=== PATIENT | male | born 1975 | race Caucasian/White ===

== ENCOUNTER 2020-09-18 14:03 | Inpatient (IN) | payer BC ==
[~2020-09-18] VITALS: Ht 188 cm; Wt 127.3 kg
[2020-09-18] MEDS ORDERED: normal saline 1000ML IV soln IV ONE (14:45)
[2020-09-18 15:11] LABS: BASOPHILS % (AUTO) 0.2 % (0-1); EOSINOPHILS % (AUTO) 0 % (0-6); HEMATOCRIT 45.5 % (42.0-52.0); HEMOGLOBIN 15.1 g/dl (14.0-17.9); LYMPHOCYTES # (AUTO) 0.7 X10'3 (1.1-4.8); LYMPHOCYTES % (AUTO) 8.6 % (21-51); MEAN CORPUSCULAR HEMOGLOBIN 27.3 PG (27.0-31.0); MEAN CORPUSCULAR HGB CONC 33.2 g/dL (33.0-36.5); MEAN CORPUSCULAR VOLUME 82.2 FL (78-98); MEAN PLATELET VOLUME 7.5 FL (7.4-10.4); MONOCYTES # (AUTO) 0.5 X10'3 (0-0.9); MONOCYTES % (AUTO) 5.9 % (2-12); NEUTROPHILS # (AUTO) 6.7 X10'3 (1.8-7.7); NEUTROPHILS % (AUTO) 85.3 % (42-75); PLATELET COUNT 188 X10'3 (140-440); RED BLOOD COUNT 5.53 X10'6 (4.70-6.10); RED CELL DISTRIBUTION WIDTH 14.1 % (11.5-14.5); WHITE BLOOD COUNT 7.9 X10'3 (4.5-11.0)
[2020-09-18 15:15] LABS: ABG BASE EXCESS -2.9 mmol/L (-2.0-2.0); ABG HCO3 19.5 mmol/L (22.0-26.0); ABG OXYGEN SATURATION 89.9 % (94-97); ABG PCO2 (T) 28.5 mmHg (35.0-48.0); ALLEN'S TEST POSITIVE; FCOHb 0.9 % (0.0-3.9); FLOW 10 L/min; FMetHb 0.1 % (0.0-1.5); TOTAL HEMOGLOBIN 15.5 G/dl (14.0-18.0)
[2020-09-18 15:26] LABS: ALANINE AMINOTRANSFERASE 64 U/L (12-78); ALBUMIN 3.1 G/DL (3.4-5.0); ALBUMIN/GLOBULIN RATIO 0.7 (1.1-1.5); ALKALINE PHOSPHATASE 61 IU/L (46-116); ANION GAP 7 (8-16); ASPARTATE AMINO TRANSFERASE 131 U/L (10-37); BILIRUBIN,TOTAL 0.4 MG/DL (0.1-1.0); BLOOD UREA NITROGEN 13 MG/DL (7-18); BUN/CREATININE RATIO 9.4 (5.4-32.0); CALCIUM 7.7 MG/DL (8.5-10.1); CHLORIDE 98 MMOL/L (99-107); CREATININE 1.39 MG/DL (0.60-1.10); GLUCOSE 126 MG/DL (70-104); MAGNESIUM 1.9 MG/DL (1.5-2.4); POTASSIUM 3.6 MMOL/L (3.5-5.1); SODIUM 132 MMOL/L (135-145); TOTAL CARBON DIOXIDE 26.7 MMOL/L (24-32); TOTAL PROTEIN 7.4 G/DL (6.4-8.2); eGFR 55 ML/MIN
[2020-09-18] MEDS ORDERED: dexamethasone sod phosphate 10mg/ml inj IV STA (15:30)
[2020-09-18] MEDS ORDERED: CefTRIAXone 2gm/D5W 50ml BAG 50 ML IV ONE (16:00)
[2020-09-18] MEDS ORDERED: NO HOME MEDS (16:04)
[2020-09-18] MEDS ORDERED: REMDESIVIR 100MG inj. 200 MG in normal saline 100ml IV soln 100 ML IV ONE (16:05)
[2020-09-18] MEDS ORDERED: metoclopramide 5 mg/ml inj IV PRN (16:25)
[2020-09-18] MEDS ORDERED: HYDROcodone/acetaminophen 10/325mg tab PO PRN (16:25)
[2020-09-18] MEDS ORDERED: morphine 2 MG/ML inj. syringe IV PRN ×2 (16:25)
[2020-09-18] MEDS ORDERED: mag hydrox/Alum hydrox/simeth 30ml oral suspension PO PRN (16:25)
[2020-09-18] MEDS ORDERED: HYDROcodone/acetaminophen 5mg/325mg tablet PO PRN (16:25)
[2020-09-18] MEDS ORDERED: magnesium hydroxide 30ml (MOM) UD suspension PO PRN (16:25)
[2020-09-18] MEDS ORDERED: acetaminophen 325mg tablet PO PRN (16:25)
[2020-09-18] MEDS ORDERED: ondansetron/PF 4mg/2ml inj IV PRN (16:25)
[2020-09-18 16:47] LABS: D-DIMER 1.65 MG/L FEU (0-0.50)
[2020-09-18 16:57] LABS: C-REACTIVE PROTEIN 15.83 MG/DL (0.0-0.5)
[2020-09-18] MEDS: CefTRIAXone/D5W-Rocephin 1gm 50 ML IV SCH (17:01)
--- NOTE | 2020-09-18 17:56 | NUR ---
Pt noted as taking photos with cell phone. Informed of the federal offense r/t use of cameras in hospital/er. pt verbalized understanding. TASHA Garcia notified.
[2020-09-18 19:09] VITALS: BP 111/88
[2020-09-18] MEDS: docusate sod 100mg capsule PO SCH (20:00)
[2020-09-18] MEDS: dexamethasone inj 6 MG in normal saline 50ml IV soln 50 ML IV SCH (20:00)
[2020-09-18] MEDS: enoxaparin 40mg/0.4ml syringe SUBCUT SCH (20:00)
[2020-09-18 22:00] VITALS: BP 132/85
[2020-09-19 02:00] VITALS: BP 127/80
--- NOTE | 2020-09-19 06:25 | NUR ---
Patient in room PCU 3008. I have received report from MEKA Ortega and had the opportunity to ask questions and assume patient care.
[2020-09-19 06:48] LABS: BASOPHILS % (AUTO) 0.1 % (0-1); EOSINOPHILS % (AUTO) 0 % (0-6); HEMATOCRIT 42.5 % (42.0-52.0); HEMOGLOBIN 14.3 g/dl (14.0-17.9); LYMPHOCYTES # (AUTO) 0.6 X10'3 (1.1-4.8); LYMPHOCYTES % (AUTO) 7.4 % (21-51); MEAN CORPUSCULAR HEMOGLOBIN 27.4 PG (27.0-31.0); MEAN CORPUSCULAR HGB CONC 33.7 g/dL (33.0-36.5); MEAN CORPUSCULAR VOLUME 81.4 FL (78-98); MEAN PLATELET VOLUME 7.5 FL (7.4-10.4); MONOCYTES # (AUTO) 0.6 X10'3 (0-0.9); MONOCYTES % (AUTO) 7.9 % (2-12); NEUTROPHILS # (AUTO) 6.3 X10'3 (1.8-7.7); NEUTROPHILS % (AUTO) 84.6 % (42-75); PLATELET COUNT 191 X10'3 (140-440); RED BLOOD COUNT 5.22 X10'6 (4.70-6.10); RED CELL DISTRIBUTION WIDTH 14.3 % (11.5-14.5); WHITE BLOOD COUNT 7.5 X10'3 (4.5-11.0)
[2020-09-19 06:57] LABS: ALBUMIN 2.5 G/DL (3.4-5.0); ANION GAP 11 (8-16); BLOOD UREA NITROGEN 15 MG/DL (7-18); BUN/CREATININE RATIO 13.3 (5.4-32.0); CALCIUM 7.6 MG/DL (8.5-10.1); CHLORIDE 103 MMOL/L (99-107); CREATININE 1.13 MG/DL (0.60-1.10); GLUCOSE 130 MG/DL (70-104); POTASSIUM 3.9 MMOL/L (3.5-5.1); SODIUM 138 MMOL/L (135-145); TOTAL CARBON DIOXIDE 24.1 MMOL/L (24-32); eGFR 70 ML/MIN
[2020-09-19] MEDS: dexamethasone inj 6 MG in normal saline 50ml IV soln 50 ML IV SCH ×2 (07:52→20:00)
[2020-09-19 08:00] VITALS: BP 125/73
[2020-09-19] MEDS: docusate sod 100mg capsule PO SCH ×2 (08:00→20:00)
[2020-09-19] MEDS: enoxaparin 40mg/0.4ml syringe SUBCUT SCH ×2 (08:01→20:00)
[2020-09-19] MEDS: CefTRIAXone/D5W-Rocephin 1gm 50 ML IV SCH (08:19)
[2020-09-19 11:45] VITALS: BP 123/79
[2020-09-19] MEDS: acetaminophen 325mg tablet PO PRN (12:06)
[2020-09-19 12:42] LABS: TROPONIN I < 0.04 NG/ML (0.0-0.05)
[2020-09-19 12:50] LABS: ABG BASE EXCESS -3.1 mmol/L (-2.0-2.0); ABG HCO3 19.3 mmol/L (22.0-26.0); ABG OXYGEN SATURATION 94.8 % (94-97); ABG PO2 (T) 70.6 mmHg (75.0-100.0); ALLEN'S TEST POSITIVE; FCOHb 0.2 % (0.0-3.9); FMetHb 0.1 % (0.0-1.5); FO2Hb 94.5 % (94-97); RESPIRATORY RATE 24 b/min
[2020-09-19 15:00] VITALS: BP 123/84
[2020-09-19 18:00] VITALS: BP 128/72
--- NOTE | 2020-09-19 18:25 | NUR ---
Problems reprioritized. Patient report given, questions answered & plan of care reviewed with MEKA Piña.
--- NOTE | 2020-09-19 18:30 | NUR ---
Patient in room PCU 3008. I have received report from Donita ACKERMAN and had the opportunity to ask questions and assume patient care.
[2020-09-19] MEDS: REMDESIVIR 100MG inj. 100 MG in normal saline 100ml IV soln 100 ML IV SCH (20:00)
[2020-09-19] MEDS: nystatin 15 GM powder TP SCH (20:00)
[2020-09-19] MEDS: lactobacillus rhamnosus 10,000 MMU CELLS/CAPSULE PO SCH (20:00)
[2020-09-19 22:00] VITALS: BP 132/78
[2020-09-20] VITALS (7 sets, daily range): BP systolic 116–146; BP diastolic 72–89
--- NOTE | 2020-09-20 06:17 | NUR ---
Patient in room PCU 3008. I have received report from Wang ACKERMAN and had the opportunity to ask questions and assume patient care. Pt resting in bed at this time, offers no complaints, will continue to monitor.
--- NOTE | 2020-09-20 06:18 | NUR ---
Problems reprioritized. Patient report given, questions answered & plan of care reviewed with MEKA Piña.
--- NOTE | 2020-09-20 06:22 | NUR ---
Problems reprioritized. Patient report given, questions answered & plan of care reviewed with Rdaha ACKERMAN.
[2020-09-20 07:04] LABS: BASOPHILS % (AUTO) 0.1 % (0-1); EOSINOPHILS % (AUTO) 0 % (0-6); HEMATOCRIT 42.4 % (42.0-52.0); HEMOGLOBIN 14.4 g/dl (14.0-17.9); LYMPHOCYTES # (AUTO) 0.5 X10'3 (1.1-4.8); MEAN CORPUSCULAR HEMOGLOBIN 28.1 PG (27.0-31.0); MEAN CORPUSCULAR VOLUME 82.6 FL (78-98); MEAN PLATELET VOLUME 7.7 FL (7.4-10.4); MONOCYTES # (AUTO) 0.8 X10'3 (0-0.9); MONOCYTES % (AUTO) 7.9 % (2-12); NEUTROPHILS # (AUTO) 9.1 X10'3 (1.8-7.7); PLATELET COUNT 230 X10'3 (140-440); RED BLOOD COUNT 5.13 X10'6 (4.70-6.10); RED CELL DISTRIBUTION WIDTH 14.5 % (11.5-14.5); WHITE BLOOD COUNT 10.5 X10'3 (4.5-11.0)
[2020-09-20 07:14] LABS: ALBUMIN 2.5 G/DL (3.4-5.0); ANION GAP 10 (8-16); BLOOD UREA NITROGEN 18 MG/DL (7-18); C-REACTIVE PROTEIN 8.13 MG/DL (0.0-0.5); CHLORIDE 106 MMOL/L (99-107); GLUCOSE 145 MG/DL (70-104); POTASSIUM 3.9 MMOL/L (3.5-5.1); SODIUM 143 MMOL/L (135-145); TOTAL CARBON DIOXIDE 26.7 MMOL/L (24-32); eGFR 81 ML/MIN
[2020-09-20] MEDS: docusate sod 100mg capsule PO SCH ×2 (08:00→20:00)
[2020-09-20] MEDS: dexamethasone inj 6 MG in normal saline 50ml IV soln 50 ML IV SCH ×2 (08:54→20:00)
[2020-09-20] MEDS: enoxaparin 40mg/0.4ml syringe SUBCUT SCH ×2 (08:55→20:00)
[2020-09-20] MEDS: CefTRIAXone/D5W-Rocephin 1gm 50 ML IV SCH (08:55)
[2020-09-20] MEDS: lactobacillus rhamnosus 10,000 MMU CELLS/CAPSULE PO SCH ×2 (08:55→20:00)
[2020-09-20] MEDS: REMDESIVIR 100MG inj. 100 MG in normal saline 100ml IV soln 100 ML IV SCH (08:55)
[2020-09-20] MEDS: nystatin 15 GM powder TP SCH ×2 (08:56→20:00)
[2020-09-20] MEDS: guaiFENesin/codeine phos 10ml UD oral syrup PO PRN (12:49)
[2020-09-20] MEDS: LORazepam 0.5 MG tablet PO PRN (17:40)
--- NOTE | 2020-09-20 18:04 | NUR ---
Problems reprioritized. Patient report given, questions answered & plan of care reviewed with MEKA Piña.
--- NOTE | 2020-09-20 18:04 | NUR ---
[place] documentation: I have reviewed and agree with interventions, assessments performed and documented by Татьяна ACKERMAN. [place] Medication Administration: For this medication-pass time frame, medication were reviewed, dispensed, administered and documented per hospital policy by Татьяна ACKERMAN.
--- NOTE | 2020-09-20 18:05 | NUR ---
Patient in room PCU 3008. I have received report from Radha ACKERMAN and Татьяна RN ([facility]) and had the opportunity to ask questions and assume patient care.
--- NOTE | 2020-09-20 18:06 | NUR ---
Problems reprioritized. Patient report given, questions answered & plan of care reviewed with Wang ACKERMAN.
[2020-09-21 02:00] VITALS: BP 139/91
[2020-09-21 06:00] VITALS: BP 146/89
--- NOTE | 2020-09-21 06:05 | NUR ---
Problems reprioritized. Patient report given, questions answered & plan of care reviewed with Radha ACKERMAN and Татьяна RN.
--- NOTE | 2020-09-21 06:05 | NUR ---
orientee documentation: I have reviewed and agree with all interventions, assessments performed and documented by Amna Henriquez RN .
--- NOTE | 2020-09-21 06:22 | NUR ---
Patient in room PCU 3008. I have received report from [facility] and had the opportunity to ask questions and assume patient care.
--- NOTE | 2020-09-21 06:31 | NUR ---
Patient in room PCU 3008. I have received report from Wang ACKERMAN and had the opportunity to ask questions and assume patient care.
[2020-09-21 06:34] LABS: BASOPHILS % (AUTO) 0.2 % (0-1); EOSINOPHILS % (AUTO) 0 % (0-6); HEMOGLOBIN 13.6 g/dl (14.0-17.9); LYMPHOCYTES # (AUTO) 0.7 X10'3 (1.1-4.8); LYMPHOCYTES % (AUTO) 4.1 % (21-51); MEAN CORPUSCULAR HEMOGLOBIN 27.6 PG (27.0-31.0); MEAN CORPUSCULAR HGB CONC 34.1 g/dL (33.0-36.5); MEAN PLATELET VOLUME 7.6 FL (7.4-10.4); MONOCYTES # (AUTO) 1.3 X10'3 (0-0.9); MONOCYTES % (AUTO) 8.2 % (2-12); NEUTROPHILS # (AUTO) 14.3 X10'3 (1.8-7.7); NEUTROPHILS % (AUTO) 87.5 % (42-75); PLATELET COUNT 248 X10'3 (140-440); RED BLOOD COUNT 4.93 X10'6 (4.70-6.10); RED CELL DISTRIBUTION WIDTH 14.4 % (11.5-14.5); WHITE BLOOD COUNT 16.3 X10'3 (4.5-11.0)
[2020-09-21 06:37] LABS: D-DIMER 1.59 MG/L FEU (0-0.50)
[2020-09-21 06:50] LABS: ALBUMIN 2.4 G/DL (3.4-5.0); ANION GAP 11 (8-16); BLOOD UREA NITROGEN 18 MG/DL (7-18); BUN/CREATININE RATIO 18.9 (5.4-32.0); C-REACTIVE PROTEIN 3.63 MG/DL (0.0-0.5); CALCIUM 7.7 MG/DL (8.5-10.1); CHLORIDE 104 MMOL/L (99-107); CREATININE 0.95 MG/DL (0.60-1.10); GLUCOSE 177 MG/DL (70-104); POTASSIUM 3.7 MMOL/L (3.5-5.1); SODIUM 141 MMOL/L (135-145); TOTAL CARBON DIOXIDE 25.6 MMOL/L (24-32); eGFR 86 ML/MIN
[2020-09-21] MEDS: docusate sod 100mg capsule PO SCH ×2 (08:00→20:00)
[2020-09-21] MEDS: guaiFENesin/codeine phos 10ml UD oral syrup PO PRN ×3 (08:20→16:33)
[2020-09-21] MEDS: lactobacillus rhamnosus 10,000 MMU CELLS/CAPSULE PO SCH ×2 (08:20→20:47)
[2020-09-21] MEDS: REMDESIVIR 100MG inj. 100 MG in normal saline 100ml IV soln 100 ML IV SCH (08:20)
[2020-09-21] MEDS: dexamethasone inj 6 MG in normal saline 50ml IV soln 50 ML IV SCH ×2 (08:20→20:47)
[2020-09-21] MEDS: CefTRIAXone/D5W-Rocephin 1gm 50 ML IV SCH (08:20)
[2020-09-21] MEDS: enoxaparin 40mg/0.4ml syringe SUBCUT SCH ×2 (08:21→20:50)
[2020-09-21] MEDS: nystatin 15 GM powder TP SCH ×2 (08:21→20:50)
[2020-09-21 11:00] VITALS: BP 151/97
[2020-09-21 15:00] VITALS: BP 158/93
[2020-09-21] MEDS: LORazepam 0.5 MG tablet PO PRN (16:33)
--- NOTE | 2020-09-21 18:24 | NUR ---
Problems reprioritized. Patient report given, questions answered & plan of care reviewed with Wang ACKERMAN .
--- NOTE | 2020-09-21 18:26 | NUR ---
[place] documentation: I have reviewed and agree with interventions, assessments performed and documented by Татьяна ACKERMAN .[place]epali Medication Administration: For this medication-pass time frame, medication were reviewed, dispensed, administered and documented per hospital policy by Татьяна ACKERMAN .
--- NOTE | 2020-09-21 18:30 | NUR ---
Patient in room PCU 3008. I have received report from [facility] and had the opportunity to ask questions and assume patient care.
--- NOTE | 2020-09-21 20:18 | NUR ---
Patient switched to CPAP 15. Patient reports this is more comfortable. SpO2 still at same levels. RN & RT to monitor closely. Addendum: 09/21/20 at 2021 by Mayco Harris RT Amended: Links added.
--- NOTE | 2020-09-21 23:35 | NUR ---
Patient's O2 saturation drops dramatically when mask is taken off. Patient only able to take 3 bites and swallow, with breaks in between to increase 02. Addendum: 09/21/20 at 2336 by Amna Palencia RN Amended: Links added.
[2020-09-22] VITALS (7 sets, daily range): BP systolic 112–137; BP diastolic 70–88
--- NOTE | 2020-09-22 02:30 | NUR ---
Patient in room PCU 3008. I have received report from Radha ACKERMAN and had the opportunity to ask questions and assume patient care.
--- NOTE | 2020-09-22 02:49 | NUR ---
Patient on bipap, coughs spontaneously and frequently Addendum: 09/22/20 at 0251 by Amna Palencia RN Amended: Links added.
--- NOTE | 2020-09-22 04:30 | NUR ---
Patient sleeping hard when I entered. I asked if he was ready for Ativan, Robitussin and a bed bath and he requested to go back to sleep. He verbalized he will use call light to request meds later.
--- NOTE | 2020-09-22 05:23 | NUR ---
Pt tolerated new bipap settings fairly well this shift. a few episodes pt dipped to mid/low 80s was able to recover without changing bipap settings. states the bipap is more comfortable. C/o of left forearm IV burning and painful. IV was dcd. Iv site has no s/s of infections, drainage or odor. Will continue to monitor.
--- NOTE | 2020-09-22 05:26 | NUR ---
[place] documentation: I have reviewed and agree with all interventions, assessments performed and documented by Amna ACKERMAN. Addendum: 09/22/20 at 0527 by Wang Mcgraw RN For this medication-pass time frame, medication were reviewed, dispensed, administered and documented per hospital policy by Amna ACKERMAN
[2020-09-22 06:13] LABS: BASOPHILS % (AUTO) 0.1 % (0-1); EOSINOPHILS % (AUTO) 0 % (0-6); HEMATOCRIT 41.4 % (42.0-52.0); HEMOGLOBIN 13.9 g/dl (14.0-17.9); LYMPHOCYTES # (AUTO) 0.9 X10'3 (1.1-4.8); LYMPHOCYTES % (AUTO) 4.6 % (21-51); MEAN CORPUSCULAR HEMOGLOBIN 27.3 PG (27.0-31.0); MEAN CORPUSCULAR HGB CONC 33.6 g/dL (33.0-36.5); MEAN CORPUSCULAR VOLUME 81.5 FL (78-98); MEAN PLATELET VOLUME 7.7 FL (7.4-10.4); MONOCYTES # (AUTO) 1.4 X10'3 (0-0.9); MONOCYTES % (AUTO) 7.6 % (2-12); NEUTROPHILS # (AUTO) 16.2 X10'3 (1.8-7.7); NEUTROPHILS % (AUTO) 87.7 % (42-75); PLATELET COUNT 261 X10'3 (140-440); RED BLOOD COUNT 5.08 X10'6 (4.70-6.10); RED CELL DISTRIBUTION WIDTH 14.6 % (11.5-14.5); WHITE BLOOD COUNT 18.5 X10'3 (4.5-11.0)
--- NOTE | 2020-09-22 06:16 | NUR ---
Problems reprioritized. Patient report given, questions answered & plan of care reviewed with MEKA Fierro.
[2020-09-22 06:23] LABS: ALBUMIN 2.4 G/DL (3.4-5.0); ANION GAP 7 (8-16); BLOOD UREA NITROGEN 19 MG/DL (7-18); BUN/CREATININE RATIO 22.9 (5.4-32.0); C-REACTIVE PROTEIN 2.75 MG/DL (0.0-0.5); CALCIUM 7.8 MG/DL (8.5-10.1); CHLORIDE 105 MMOL/L (99-107); CREATININE 0.83 MG/DL (0.60-1.10); GLUCOSE 133 MG/DL (70-104); POTASSIUM 4.1 MMOL/L (3.5-5.1); SODIUM 139 MMOL/L (135-145); TOTAL CARBON DIOXIDE 26.7 MMOL/L (24-32); eGFR > 90 ML/MIN
[2020-09-22 06:33] LABS: D-DIMER 5.08 MG/L FEU (0-0.50)
--- NOTE | 2020-09-22 06:33 | NUR ---
Patient in room PCU 3008. I have received report from Wang RN/MEKA Woo and had the opportunity to ask questions and assume patient care.
--- NOTE | 2020-09-22 06:34 | NUR ---
Patient in room PCU 3008. I have received report from De ACKERMAN and had the opportunity to ask questions and assume patient care.
[2020-09-22] MEDS: dexamethasone inj 6 MG in normal saline 50ml IV soln 50 ML IV SCH ×2 (08:00→19:22)
[2020-09-22] MEDS: docusate sod 100mg capsule PO SCH ×2 (08:00→20:00)
[2020-09-22] MEDS: nystatin 15 GM powder TP SCH ×2 (08:00→19:24)
[2020-09-22] MEDS: lactobacillus rhamnosus 10,000 MMU CELLS/CAPSULE PO SCH ×2 (08:00→19:23)
[2020-09-22] MEDS: enoxaparin 40mg/0.4ml syringe SUBCUT SCH (08:00)
[2020-09-22] MEDS: CefTRIAXone/D5W-Rocephin 1gm 50 ML IV SCH (08:30)
--- NOTE | 2020-09-22 08:59 | NUR ---
Scheduled medications administered. Pt is in COVID Airborne isolation and computer scanner not working. No additional computers available, thus medications administered without scanning. Medication rights followed.
[2020-09-22] MEDS: REMDESIVIR 100MG inj. 100 MG in normal saline 100ml IV soln 100 ML IV SCH (09:30)
[2020-09-22] MEDS: LORazepam 0.5 MG tablet PO PRN ×2 (09:44→22:21)
--- NOTE | 2020-09-22 12:36 | NUR ---
Paged respiratory to assist pt to go onto high flow to eat lunch. "RE: Leonidas Mccabe RM: [id number]. Can you please place pt on high flow from BiPAP due to pt wanting to eat lunch. Thank you. "
--- NOTE | 2020-09-22 13:12 | NUR ---
Pt on high flow salter O2 with rebreather mask in hand to facilitate eating lunch. pt tolerating well with SPO2 85-89% while eating.
--- NOTE | 2020-09-22 17:36 | NUR ---
[place] documentation: I have reviewed and agree with all interventions, assessments performed and documented by MEKA Robledo.
--- NOTE | 2020-09-22 17:36 | NUR ---
[place] Medication Administration: For this medication-pass time frame, all medication were reviewed, dispensed, administered and documented per hospital policy by MEKA Robledo.
--- NOTE | 2020-09-22 18:05 | NUR ---
Patient in room PCU 3008. I have received report from Sri ACKERMAN and had the opportunity to ask questions and assume patient care.
--- NOTE | 2020-09-22 18:17 | NUR ---
Problems reprioritized. Patient report given, questions answered & plan of care reviewed with MEKA Piña/MEKA Woo.
--- NOTE | 2020-09-22 18:17 | NUR ---
Problems reprioritized. Patient report given, questions answered & plan of care reviewed with De ACKERMAN. Pt supine, Bipap in place, no s/sx acute distress.
[2020-09-22] MEDS ORDERED: enoxaparin 100mg/ml syringe SUBCUT SCH (20:00)
[2020-09-22] MEDS: guaiFENesin/codeine phos 10ml UD oral syrup PO PRN (20:03)
--- NOTE | 2020-09-22 22:39 | NUR ---
PAGER ID: [phone] MESSAGE: [phone] Nelson Mccabe Covid + Pt exhausted, anxious, requesting intubation. Has Ativan 0.5 mg BID, not effective. Unable to sleep. Bipap 85% , 02 mon 91-93. Requesting sleep RX or Ativan increase please. Amna ACKERMAN ext [phone] Addendum: 09/23/20 at 0032 by Amna Palencia RN Received call back from Dr. Nix. She ordered 1 mg Ativan Q6H PRN anxiety and said she "will not be filling orders for this patient again tonight".
[2020-09-22] MEDS ORDERED: LORazepam 0.5 MG tablet PO PRN (22:45)
[2020-09-22] MEDS ORDERED: LORazepam 1 MG tablet PO PRN (22:45)
[2020-09-22] MEDS: acetaminophen 325mg tablet PO PRN (23:53)
--- NOTE | 2020-09-23 04:14 | NUR ---
technical agronomist reported leads and o2 probe were off at approx 0100 i ran into pt room, found him down on floor non responsive not breathing, no pulse, called code initiated CPR stat. Code ended at 0123, code was unsuccessful. TOD was called @0123. Family was notified by Wang ACKERMAN, all pt belongings were sent home with family. Release was signed for [place] on [address] to berry picker until family can make arrangements.
== END 2020-09-23 04:01 | disposition expired | DRG 177 ==
LOC: ER 14:04 → ED HOLD 16:21 → PCU 3S 18:46
PROVIDERS: ADMIT Internal Medicine; ATTEND Internal Medicine
PROC: XW033E5 Introduction of Remdesivir Anti-infective into Peripheral Vein, Percutaneous Approach, New Technology Group 5 (ICD-10-PCS; 2020-09-18)
PROC: 5A0935A Assistance with Respiratory Ventilation, Less than 24 Consecutive Hours, High Flow/Velocity Cannula (ICD-10-PCS; 2020-09-19)
PROC: 5A09357 Assistance with Respiratory Ventilation, Less than 24 Consecutive Hours, Continuous Positive Airway Pressure (ICD-10-PCS; 2020-09-19)
PROC: 5A09357 Assistance with Respiratory Ventilation, Less than 24 Consecutive Hours, Continuous Positive Airway Pressure (ICD-10-PCS; 2020-09-20)
PROC: 5A09357 Assistance with Respiratory Ventilation, Less than 24 Consecutive Hours, Continuous Positive Airway Pressure (ICD-10-PCS; 2020-09-21)
PROC: 5A09357 Assistance with Respiratory Ventilation, Less than 24 Consecutive Hours, Continuous Positive Airway Pressure (ICD-10-PCS; 2020-09-22)
PROC: 5A12012 Performance of Cardiac Output, Single, Manual (ICD-10-PCS; principal; 2020-09-23)
DX: U07.1 COVID-19 (principal); J96.01 Acute respiratory failure with hypoxia; J12.82 Pneumonia due to coronavirus disease 2019; N17.9 Acute kidney failure, unspecified; Z83.3 Family history of diabetes mellitus; E66.01 Morbid (severe) obesity due to excess calories; Z68.36 Body mass index [BMI] 36.0-36.9, adult; D72.810 Lymphocytopenia; I46.9 Cardiac arrest, cause unspecified
CPT/HCPCS: 36415; 36600; 71045; 80048; 80053; 82803; 83605; 83735; 83880; 84145; 84484; 85018; 85025; 85379; 86140; 87040; 87081; 87502; 87503; 92950; 93005; 94660; 94667; 94760; 96374; 99291; G0378; J0696; J1100; J1650; J7030